=== PATIENT | male | born 1970 | race Caucasian/White ===

== ENCOUNTER → 2016-08-10 | Outpatient (CLI) | payer OTHER, BC ==
[2016-08-10 13:12] VITALS: BP 117/64; PULSE 72; RESP 20; TEMP 98.9; BMI 39.1
--- NOTE | 2016-08-10 16:06 | P.BASOAP ---
Subjective Principal diagnosis: Morbid obesity Patient doing well today. Would like an additional adjustment. He was tight previously when he was at 9 mL. Denies nausea or vomiting. Describes increased hunger and decreased restriction. Objective - Vital Signs Vital signs: Vital Signs Temp 98.9 F 08/10/16 13:05 Pulse 72 08/10/16 13:05 Resp 20 08/10/16 13:05 BP 117/64 08/10/16 13:05 Pulse Ox Intake & Output 08/09/16 08/10/16 08/10/16 18:59 06:59 18:59 Weight 138.346 kg - Exam Abdomen: Soft, nontender, nondistended Assessment/Plan (1) Morbid obesity Narrative/Plan: Will proceed with LAP-BAND adjustment. The patient's lap band port was palpated. The site was aseptically prepped. 1% lidocaine was infiltrated into the subcutaneous tissues through a diabetic syringe. The Farmer needle was advanced into the port. Aspiration took place. A total of 0.5 ml of fluid was added for a total of 8.5 mL. Pressure was held and a sterile dressing was applied. Plan: Date: 08/10/16 Initial Weight: 140.75 kg Initial BMI: 39.8 Current Weight: 138.346 kg Current BMI: 39.1 Type of Surgery: Total Volume in Band: 8.5 Previous Volume: 8 Volume Removed: 0 Volume Added: 0.5 Band Size:
== END | disposition home or self-care (01) ==
LOC: BARWHC3 12:26
PROVIDERS: ATTEND Surgery
DX: E66.01 Morbid (severe) obesity due to excess calories (principal); Z68.39 Body mass index [BMI] 39.0-39.9, adult
CPT/HCPCS: 99212

== ENCOUNTER → 2019-05-01 | Outpatient (CLI) | payer BC ==
[2019-05-01 16:36] VITALS: BP 134/86; PULSE 79; RESP 16; TEMP 98.2; BMI 38.1
--- NOTE | 2019-05-01 21:26 | P.BASOAP ---
Subjective Progress Note Date: 05/01/19 Principal diagnosis: Morbid obesity Patient requesting loosening of band. Some night cough. No vomiting. No pain. Objective - Vital Signs Vital signs: Vital Signs Temp 98.2 F 05/01/19 16:32 Pulse 79 05/01/19 16:32 Resp 16 05/01/19 16:32 BP 134/86 05/01/19 16:32 Pulse Ox Intake & Output 05/01/19 05/01/19 05/02/19 06:59 18:59 06:59 Weight 134.717 kg - Exam Abdomen: Soft, nontender, nondistended Assessment/Plan (1) Morbid obesity Narrative/Plan: We'll loosen the patient's band. Only wants 0.2 removed. Plan: Date: 05/01/19 Initial Weight: 140.75 kg Initial BMI: 39.8 Current Weight: 134.717 kg Current BMI: 38.1 Type of Surgery: Total Volume in Band: 8.7 Previous Volume: Volume Removed: 0.2 Volume Added: Band Size:
== END | disposition home or self-care (01) ==
LOC: BARWHC3 15:51
PROVIDERS: ATTEND Surgery
DX: Z46.51 Encounter for fitting and adjustment of gastric lap band (principal); E66.01 Morbid (severe) obesity due to excess calories; Z68.38 Body mass index [BMI] 38.0-38.9, adult
CPT/HCPCS: 99212